=== PATIENT | male | born 1990 | race Caucasian/White ===

== ENCOUNTER 2017-07-21 13:22 | Emergency (ER) | payer SELFPAY ==
[2017-07-21] MEDS ORDERED: ONDANSETRON HCL IV 4 MG/2 ML VIAL IVP ONE (13:23)
[2017-07-21] MEDS ORDERED: LORAZEPAM 2 MG/ML VIAL IV ONE (13:23)
[2017-07-21] MEDS ORDERED: 0.9 % SODIUM CHLORIDE 1,000 ML BAG IV ONE ×3 (13:23→14:15)
--- NOTE | 2017-07-21 13:31 | Emergency Department Record ---
History of Present Illness - General Stated Complaint: UNABLE TO MOVE FINGERS OR LEGS Time Seen by Provider: 07/21/17 13:23 Source: Patient Mode of Arrival: Ambulatory Limitations: No limitations - History of Present Illness Initial comments: 26 yo male presents with muscle cramps, nausea, vomiting, and sweating. He has been working outside in hot clothing throughout the day. He feels overheated. No confusion or mental status changes. He had tingling around his lips, cramps in the hands and feet. He denies drugs, alcohol. He is normally healthy. He is not on prescription medications. He wears heavy protective clothing for his work. -: Hour(s) Location: Upper extremity, Lower extremity Quality: Other (cramps) Consistency: Constant Improves with: None Worsens with: Other (rapid breathing) Associated Symptoms: Diaphoresis, Loss of appetite, Nausea/vomiting, Other ( muscle cramps) - [place] Coma Scale Eye Response: (4) Open spontaneously Motor Response: (6) Obeys commands Verbal Response: (5) Oriented [place] Total: 15 Review of Systems Constitutional: Denies: Chills, Fever, Malaise Eyes: Denies: Eye discharge, Eye pain, Photophobia, Vision change ENT: Denies: Congestion, Throat pain Respiratory: Denies: Cough, Dyspnea Cardiovascular: Denies: Chest pain, Palpitations, Syncope Endocrine: Reports: Fatigue Gastrointestinal: Reports: Nausea, Vomiting. Denies: Abdominal pain, Diarrhea Genitourinary: Denies: Dysuria, Frequency, Hematuria Musculoskeletal: Reports: Myalgia. Denies: Arthralgia, Back pain, Joint swelling Skin: Denies: Bruising, Change in color, Rash Neurological: Reports: Numbness, Tingling. Denies: Headache Psychiatric: Reports: Anxiety Hematological/Lymphatic: Denies: Easy bleeding, Easy bruising, Swollen glands Physical Exam - General General Appearance: Alert, Oriented x3, Cooperative, Other (vomiting; alert, conversational, good historian, no mental status changes) Limitations: No limitations - Head Head exam: Atraumatic, Normocephalic, Normal inspection - Eye Eye exam: Normal appearance, PERRL. negative: Conjunctival injection, Scleral icterus - ENT ENT exam: Normal exam, Mucous membranes moist Ear exam: Normal external inspection Nasal Exam: Normal inspection Mouth exam: Normal external inspection - Neck Neck exam: Normal inspection, Full ROM. negative: Tenderness - Respiratory Respiratory exam: Normal lung sounds bilaterally. negative: Respiratory distress, Rhonchi, Stridor, Wheezes - Cardiovascular Cardiovascular Exam: Regular rate, Normal rhythm, Normal heart sounds - GI/Abdominal GI/Abdominal exam: Soft. negative: Tenderness - Rectal Rectal exam: Deferred - exam: Deferred - Extremities Extremities exam: Normal inspection - Back Back exam: Denies: CVA tenderness (R), CVA tenderness (L) - Neurological Neurological exam: Alert, Oriented X3. negative: Altered - Psychiatric Psychiatric exam: Anxious - Skin Skin exam: Diaphoretic Course - Reevaluation(s) Reevaluation #1: 07/21/17 13:54 The patient is feeling significantly better at this time with the Zofran and IVF. 07/21/17 14:14 The labs were reviewed The HCO3 is 17 The AG is 26 The CR is 1.7 IV hydration will continue and labs rechecked 07/21/17 14:16 Clinically the patient is dong very well. No nausea, headache or symptoms. His cramps have nearly resolved. He is drinking fluids. 07/21/17 16:46 The repeat labs were much improved He is feeling greatly improved and ready for DC home Medical Decision Making - Lab Data Result diagrams: 07/21/17 13:30 07/21/17 16:10 Disposition Disposition: Discharge Clinical Impression: Dehydration Disposition: Home, Self-Care Condition: (1) Good Instructions: Dehydration (ED) Additional Instructions: Rest and stay well hydrated Off work tomorrow Avoid over exertion and dehydration Return if you have any return of your symptoms Forms: Patient Portal Access Time of Disposition: 16:46 Quality - Quality Measures Quality Measures: N/A - Blood Pressure Screening Does Patient Have Any of the Following: No Blood Pressure Classification: Pre-Hypertensive BP Reading Systolic Measurement: 135 Diastolic Measurement: 85 Screening for High Blood Pressure: < Pre-Hypertensive BP, F/U Documented > [ [id number]] Pre-Hypertensive Follow-up Interventions: Referral to alternative/primary care provider.
[2017-07-21 13:38] LABS: HEMATOCRIT 45.8 % (42.0-52.0); HEMOGLOBIN 15.9 gm/dl (14.0-18.0); MEAN CELL VOLUME 86.6 fl (81-97); MEAN CORPUSCULAR HEMOGLOBIN 30.1 pg (27-33); MEAN CORPUSCULAR HGB CONC 34.7 g/dl (32-36); MEAN PLATELET VOLUME 9.8 fl (7.4-10.4); PLATELET COUNT 413 K/uL (130-400); RED BLOOD COUNT 5.29 M/uL (4.40-5.70); RED CELL DISTRIBUTION WIDTH 13.7 % (11.5-14.5); WHITE BLOOD COUNT W/O DIFF 16.5 K/uL (4.2-12.2)
[2017-07-21 13:56] LABS: CREATININE 1.7 mg/dL (0.7-1.2)
[2017-07-21 14:01] LABS: PLATELET ESTIMATE NORMAL (NORMAL)
[2017-07-21 16:33] LABS: BLOOD UREA NITROGEN 13 mg/dL (6-20); CREATININE 1.4 mg/dL (0.7-1.2); EST GLOMERULAR FILTRATION RATE > 60 mL/min
[2017-07-21 16:36] LABS: GLUCOSE,RANDOM 80 mg/dL (74-109)
== END 2017-07-21 17:03 | disposition home or self-care (01) ==
LOC: ER 13:22
DX: E86.0 Dehydration (principal); R25.2 Cramp and spasm; R63.0 Anorexia; R11.2 Nausea with vomiting, unspecified; R61 Generalized hyperhidrosis; R20.2 Paresthesia of skin
CPT/HCPCS: 99284 ×2; 96374; 96375; 96361; 83735; 80048; 85027; J2405; J2060; J7030

== ENCOUNTER 2017-09-04 11:28 | Emergency (ER) | payer SELFPAY ==
[2017-09-04] MEDS ORDERED: ASPIRIN 81 MG CHEWABLE TABLET PO ONE (11:49)
--- NOTE | 2017-09-04 11:49 | Emergency Department Record ---
History of Present Illness - General Chief Complaint: Chest Pain Stated Complaint: CHEST PAIN/DIZZY Time Seen by Provider: 09/04/17 11:38 Source: Patient Mode of Arrival: Ambulatory - History of Present Illness Initial Comments: The patient states that he was seen here for heat exhaustion a few weeks ago, was given IV fluids and sent home over several hours. Since that time he has been vomiting in the morning when he gets up and having anterior and left sided chest pains with exertion. He is a light smoker, 1/2 pack in 2 days. but denies DM, htn, cholesterol elevation. He states his paternal grandfather of a heart attack at 62. He has never had a heart work up. He has a productive cough of white sputum, has never had pneumonia. The pain does not go through to the back, but it occasionally goes up into his neck. He states his associated symptoms are exertional SOB, sweating, and dizziness when walking across a room , and they are resolving with rest. Onset/Timin -: Month(s) Onset: Other Pain Location: Left chest Pain Radiation: None Severity scale (1-10): 3 Quality: Sharp Consistency: Constant, Intermittent Worsens With: Exertion, Movement Anginal Symptoms: Vomiting Treatments Prior to Arrival: None - Related Data Home Medications Medication Instructions Recorded Confirmed Last Taken No Home Med [NO HOME MEDS] 09/04/17 09/04/17 Unknown Allergies Allergy/AdvReac Type Severity Reaction Status Date / Time No Known Drug Allergies Allergy Verified 09/04/17 11:38 Travel Screening - Travel/Exposure Within Last 30 Days Have you traveled within the last 30 days?: No Review of Systems Reviewed: No additional complaints except as noted below Constitutional: Reports: As per HPI. Denies: Chills, Fever, Malaise, Night sweats, Weakness, Weight change Eyes: Reports: As per HPI. Denies: Eye discharge, Eye pain, Photophobia, Vision change ENT: Reports: As per HPI. Denies: Congestion, Dental pain, Ear pain, Epistaxis , Hearing loss, Throat pain Respiratory: Reports: As per HPI. Denies: Cough, Dyspnea, Hemoptysis, Stridor, Wheezes Cardiovascular: Reports: As per HPI. Denies: Arrhythmia, Chest pain, Dyspnea on exertion, Edema, Murmurs, Orthopnea, Palpitations, Paroxysmal nocturnal dyspnea, Rheumatic Fever, Syncope Endocrine: Reports: As per HPI. Denies: Fatigue, Heat or cold intolerance, Polydipsia, Polyuria Gastrointestinal: Reports: As per HPI. Denies: Abdominal pain, Constipation, Diarrhea, Hematemesis, Hematochezia, Melena, Nausea, Vomiting Genitourinary: Reports: As per HPI. Denies: Dysuria, Frequency, Hematuria, Incontinence, Retention, Testicular pain, Testicular mass, Urgency Musculoskeletal: Reports: As per HPI. Denies: Arthralgia, Back pain, Gout, Joint swelling, Myalgia, Neck pain Skin: Reports: As per HPI. Denies: Bruising, Change in color, Change in hair/ nails, Lesions, Pruritus, Rash Neurological: Reports: As per HPI. Denies: Abnormal gait, Confusion, Headache, Numbness, Paresthesias, Seizure, Tingling, Tremors, Vertigo, Weakness Psychiatric: Reports: As per HPI. Denies: Anxiety, Auditory hallucinations, Depression, Homicidal thoughts, Suicidal thoughts, Visual hallucinations Hematological/Lymphatic: Reports: As per HPI. Denies: Anemia, Blood Clots, Easy bleeding, Easy bruising, Swollen glands Past Medical History - SOCIAL HISTORY Smoking Status: Light tobacco smoker (<10/day) Alcohol Use: None Drug Use Detail:: Marijuana - RESPIRATORY Hx Respiratory Disorders: No - CARDIOVASCULAR Hx Cardio Disorders: Yes Comment:: murmer - NEURO Hx Neuro Disorders: No - GI Hx GI Disorders: No - Hx Genitourinary Disorders: No - ENDOCRINE Hx Endocrine Disorders: No - MUSCULOSKELETAL Hx Musculoskeletal Disorders: No - PSYCH Hx Psych Problems: No - HEMATOLOGY/ONCOLOGY Hx Hematology/Oncology Disorders: No Family Medical History Any Significant Family History?: No Physical Exam - General General Appearance: Alert, Oriented x3, Cooperative, No acute distress - Head Head exam: Normal inspection - Eye Eye exam: Normal appearance, PERRL Pupils: Normal accommodation - ENT ENT exam: Normal exam, Mucous membranes moist, Normal external ear exam, Normal orophraynx, TM's normal bilaterally Ear exam: Normal external inspection. negative: External canal tenderness Nasal Exam: Normal inspection. negative: Discharge, Sinus tenderness Mouth exam: Normal external inspection, Tongue normal Teeth exam: Normal inspection. negative: Dental caries Throat exam: Normal inspection. negative: Tonsillar erythema, Tonsillar exudate - Neck Neck exam: Normal inspection, Full ROM. negative: Tenderness - Respiratory Respiratory exam: Normal lung sounds bilaterally, Other (no crepitance, sub Q emphysima or rib tenderness on palpation). negative: Chest wall tenderness, Respiratory distress - Cardiovascular Cardiovascular Exam: Regular rate, Normal rhythm, Normal heart sounds - GI/Abdominal GI/Abdominal exam: Soft, Normal bowel sounds. negative: Tenderness - Rectal Rectal exam: Deferred - exam: Deferred - Extremities Extremities exam: Normal inspection, Full ROM, Normal capillary refill. negative: Calf tenderness, Pedal edema, Tenderness - Back Back exam: Reports: Normal inspection, Full ROM. Denies: CVA tenderness (R), CVA tenderness (L), Muscle spasm, Rash noted, Tenderness - Neurological Neurological exam: Alert, Normal gait, Oriented X3, Reflexes normal - Psychiatric Psychiatric exam: Normal affect, Normal mood - Skin Skin exam: Dry, Intact, Normal color, Warm Course Vital Signs 09/04/17 11:31 Temperature 97.9 F Pulse Rate 86 Respiratory 20 Rate Blood Pressure 128/88 Pulse Ox 98 - Reevaluation(s) Reevaluation #1: Patient has had no further symptoms here at rest.Orthostatic vitals reproduced his dizziness and discomfort. Will hydrate patient until nomalized hydration status. 09/04/17 15:12 Reevaluation #2: Discussed with Dr. Salmon conventional underwriter for [facility] cardiology for FH of sudden cardiac in paternal grandfather. Dr. Salmon obtained contact information and will arrange office follow up if patient's repeat troponin and follow up evaluation after hydration allow his discharge home. Patient understands this plan and agrees, he will have a repeat troponin at 5 p.m. 09/04/17 15:13 09/04/17 15:15 09/04/17 15:21 Reevaluation #3: The repeat 4 hour troponin is unchanged. Orthostatic vitals show no new symptoms but change of BP greater than 10 systolic. Will discharge patient when last liter fluid has infused. 09/04/17 16:47 Medical Decision Making - Data Complexity MDM Data: Labs Ordered and/or Reviewed, X-Ray Ordered and/or Reviewed (CXR Neg.) , EKG Ordered and/or Reviewed - Lab Data Result diagrams: 09/04/17 11:50 09/04/17 11:50 - EKG Data -: EKG Interpreted by Me EKG: No Acute Changes (Early repolarization anteriorly, no prior for comparison) Disposition Disposition: Discharge Clinical Impression: Orthostatic dizziness, Exertional chest pain Disposition: Home, Self-Care Condition: (1) Good Instructions: Chest Pain (ED), Dehydration (ED) Additional Instructions: Home, rest. Increase fluids Follow up with [facility] Dr. Salmon for out patient cardiac work up due to FH. Recheck with PCP for routine care. Quality - Quality Measures Quality Measures: N/A - Blood Pressure Screening Does Patient Have Any of the Following: No Blood Pressure Classification: Pre-Hypertensive BP Reading Systolic Measurement: 128 Diastolic Measurement: 88 Screening for High Blood Pressure: < Normal BP, F/U Not Required > [G8783]
[2017-09-04 12:01] LABS: BASO % 0.2 % (0-6); EOS % 2.8 % (0-6); GRAN % 54.9 % (47-80); HEMATOCRIT 43.8 % (42.0-52.0); HEMOGLOBIN 14.6 gm/dl (14.0-18.0); LYMPH % 32.2 % (16-45); MEAN CELL VOLUME 89.6 fl (81-97); MEAN CORPUSCULAR HEMOGLOBIN 29.9 pg (27-33); MEAN CORPUSCULAR HGB CONC 33.3 g/dl (32-36); MEAN PLATELET VOLUME 9.5 fl (7.4-10.4); MONO % 9.9 % (0-9); PLATELET COUNT 270 K/uL (130-400); RED BLOOD COUNT 4.89 M/uL (4.40-5.70); RED CELL DISTRIBUTION WIDTH 13.8 % (11.5-14.5); WHITE BLOOD COUNT W/O DIFF 8.3 K/uL (4.2-12.2)
[2017-09-04 12:16] LABS: BLOOD UREA NITROGEN 9 mg/dL (6-20); CREATININE 0.6 mg/dL (0.7-1.2); EST GLOMERULAR FILTRATION RATE > 60 mL/min
[2017-09-04 12:17] LABS: TOTAL PROTEIN 7.4 g/dL (6.6-8.7)
[2017-09-04 12:18] LABS: PARTIAL THROMBOPLASTIN TIME 28.8 SECONDS (24.5-39.1); PROTHROMBIN TIME (PATIENT) 10.3 SECONDS (9.5-12.1)
[2017-09-04 12:19] LABS: GLUCOSE,RANDOM 93 mg/dL (74-109)
[2017-09-04 12:21] LABS: ALB/GLOB RATIO 1.6 (1.1-1.8); ALBUMIN 4.5 g/dL (4.0-5.0); ALT/SGPT 84 U/L (<41); AST/SGOT 33 U/L (10.0-50.0)
[2017-09-04 12:22] LABS: ALKALINE PHOSPHATASE 51 U/L (40-129)
[2017-09-04 12:32] LABS: THYROID STIMULATING HORMONE 1.71 uIU/mL (0.270-4.20)
[2017-09-04] MEDS ORDERED: 0.9 % SODIUM CHLORIDE 1,000 ML BAG IV ONE ×2 (13:45→16:55)
[2017-09-04 16:34] LABS: CKMB < 1.0 ng/mL (<6.73)
--- NOTE | 2017-09-05 07:43 | RADIOLOGY REPORT ---
EXAM: CHEST 2 VIEWS HISTORY: DIFFICULTY IN BREATHING. TECHNIQUE: Frontal and lateral views of the chest were performed. FINDINGS: Heart size normal. Lung driver are clear. No infiltrate or pleural effusion. The osseous structures are normal. IMPRESSION: NEGATIVE CHEST EXAMINATION. JOB NUMBER: [id number] MTDD
== END 2017-09-04 17:42 | disposition home or self-care (01) ==
LOC: ER 11:28
DX: E86.0 Dehydration (principal); R42 Dizziness and giddiness; R07.89 Other chest pain; F17.210 Nicotine dependence, cigarettes, uncomplicated
CPT/HCPCS: 71046; 80053; 82553; 84443; 84484; 85025; 85379; 85610; 85730; 93005; 93010; 96360; 96361; 99284